=== PATIENT | male | born 1990 | race Caucasian/White ===

== ENCOUNTER 2023-03-01 16:35 | Emergency (ER) | payer SELFPAY ==
[~2023-03-01] VITALS: Ht 165.1 cm; Wt 113.0 kg
[2023-03-01 16:39] VITALS: BP 184/100; PULSE 117; RESP 20; TEMP 98.2; O2SAT 97
[2023-03-01 17:43] LABS: BASOPHILS % 2.3 % (0.0-2.0); EOSINOPHILS % 3.4 % (0.0-5.0); HEMATOCRIT. 37.8 % (42.0-52.0); HEMOGLOBIN. 13.1 g/dL (14.0-18.0); LYMPHOCYTES % 26.1 % (20.0-50.0); MEAN CORPUSCULAR HEMOGLOBIN 27.7 pg (28.0-32.0); MEAN CORPUSCULAR VOLUME 79.7 fL (80.0-94.0); MEAN PLATELET VOLUME 7.1 fl (7.4-10.4); MONOCYTES % 10.2 % (2.0-8.0); PLATELET 416 x1000/uL (130-400); RED BLOOD CELL COUNT 4.74 mill/uL (4.7-6.1); RED CELL DISTRIBUTION WIDTH 15.5 % (11.6-14.6)
[2023-03-01 17:47] LABS: CHLORIDE 110 mEq/L (98-107)
[2023-03-01 17:51] LABS: PROTHROMBIN TIME 10.3 sec (9.6-11.0)
[2023-03-01 17:55] LABS: CLARITY URINE CLEAR (CLEAR); COLOR URINE YELLOW (YELLOW); KETONES URINE NEGATIVE (NEGATIVE); LEUKOCYTE ESTERASE URINE NEGATIVE (NEGATIVE); NITRITE URINE NEGATIVE (NEGATIVE); OCCULT BLOOD URINE NEGATIVE (NEGATIVE); PH URINE 5.5 (4.5-8.0); PROTEIN URINE TRACE (NEGATIVE); SPECIFIC GRAVITY URINE 1.025 (1.005-1.030)
[2023-03-01] MEDS ORDERED: AMLO5TAB88 MT (21:34)
== END 2023-03-01 22:20 | disposition home or self-care (01) ==
LOC: ER 18:00
DX: I10 Essential (primary) hypertension (principal); R11.2 Nausea with vomiting, unspecified
CPT/HCPCS: 36415; 80053; 81003; 84484; 85025; 93005; 99284